=== PATIENT | female | born 1970 | race Caucasian/White ===

== ENCOUNTER 2017-07-28 01:48 | Emergency (ER) | payer OTHER ==
[~2017-07-28] VITALS: Ht 157.5 cm; Wt 56.7 kg
[~2017-07-28 01:48] MED LIST: ATIVAN1 M1 PO; FIBER CON625 MG PO; FOLIC ACID 1MG T1 MG PO; KEFLEX 500MG.500 MG PO; METHOTREXATE 22.5 MG PO; NATURE'S BLEND M3 MG PO; PLAQUENIL200 MG PO; PREDNISONE50 MG PO; PREMARIN 0.9MG0.9 MG PO
[2017-07-28] MEDS ORDERED: METHOCARBAMOL500 M1 PO (01:58)
[2017-07-28] MEDS ORDERED: DULOXETINE60 MG PO (01:58)
[2017-07-28] MEDS ORDERED: CYCLOBENZAPRINE10 M1 OR (01:59)
[2017-07-28] MEDS ORDERED: DICLOFENAC SODI PO (01:59)
--- NOTE | 2017-07-28 02:26 | Emergency Room Report ---
See Addendum History of Present Illness Time Seen by MD Macario Presenting Problem in Triage Pt arrived:Walked Presenting Problem:PT ADVISES SHE HAS A HX OF FIBROMYALGIA AND RA. 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 N Clinical Suspician of Infection? N Mental Status: 1 - Regular (Normal Baseline) Sepsis Risk:Low Sepsis Risk Have you (or family members/close friends) recently traveled outside the [place]? N If Yes, where/when: Have you had exposure to infectious disease within the past month? N TB? Other? Specify: Source patient, RN notes reviewed, family, old records Exam Limitations no limitations Comment acute excerbation of diffuse jt and mm pain with hx of ra and fibro- worse tonight despite meds Cardiac Chest Pain Chest pain indicative of cardiac No Timing/Duration this evening Severity moderate ALLERGIES Coded Allergies: No Known Allergies (08/24/16) Home Medications Active Scripts Lorazepam (Ativan) 1 MG PO TIDP PRN ANXIETY #30 TAB Prov: 05/14/15 Reported Medications MISCELLANEOUS (UNKNOWN MEDICATION) 1 TAB PO DAILY Calcium Polycarbophil (Fiber Con) 625 MG PO BID ESTROGENS, CONJUGATED (Premarin 0.9MG. Tablet) 0.9 MG PO DAILY FOLIC ACID (Folic Acid) 400 MCG PO DAILY Methocarbamol 500 MG PO DAILY #30 DULOXETINE HCL (Duloxetine) 60 MG PO DAILY #60 DICLOFENAC SODIUM/MISOPROSTOL (Diclofenac-Misoprost 50-200 Tb) 1 ECT PO DAILY #60 Cyclobenzaprine Hcl 10 MG OR DAILY #90 History Medical History General CAD? No Angina: No [place]: No Hypertension? No Hyperlipidemia? No CHF? No DVT? No PE? No COPD? No Asthma? No Anemia? No GERD? No Gastric ulcers? No GI Bleed? No Hernia? No Thyroid Problems? No Hypothyroidism? No CVA? No Seizures? No Diabetes? No Insulin Dependent: No Insulin Pump: No Home FSBS? No Renal Insuffiency? No End Stage Renal Disease? No UTI? Yes Stones? No BPH? No GB Disease: No Nephritic Syndrome? No Asplenia? No Hepatitis? No Sickle Cell Disease? No Arthritis? No Migraines? Yes Cataracts? No Glaucoma? No MRSA? No HIV? No TB? No Anxiety? No Depression? No Cancer? No More? 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 Respiratory denies cough, denies shortness of breath Cardiovascular see HPI, denies chest pain, denies palpitations, denies syncope, other Gastrointestinal denies abdominal pain, denies diarrhea, denies vomiting Genitourinary denies: dysuria, frequency, hesitancy, hematuria. Musculoskeletal see HPI, denies back pain, joint pain, joint swelling, denies neck pain Skin denies rash Psychiatric/Neurological denies headache, denies seizure Physical Exam Vital Signs Vital Signs Date Time Temp Pulse Resp B/P Pulse O2 O2 Flow FiO2 Ox Delivery Rate 07/28 0315 16 07/28 0220 16 07/28 0153 98.5 73 16 150/90 98 - WBC >12,000 or <4,000 or 10% bands? 2 or more SIRS Criteria Met? B/P:150/90 MAP:110 Creatinine >2.0? UA output<0.5ml/kg/hr for 2 hrs? Platelet count >100,000? Lactate >2.0mmol/1? INR >1.2 or PTT > than 60 sec? Evidence of Organ Dysfunction? Provider documented clinical suspician of infection? N Sepsis Criteria Count: 0 Sepsis Risk: Low Sepsis Risk General Appearance no apparent distress Eye Exam - bilateral eye PERRL, bilateral eye EOMI Ear, Nose, Throat normal ENT inspection Neck supple Respiratory Status No: respiratory distress. 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 No Results/Orders Laboratory Tests 07/28/17 0206: Sodium 142, Potassium 4.0, Chloride 105, Carbon Dioxide 29, BUN 13, Creatinine 1.0, Estimated Creat Clear 62, Estimated GFR (MDRD) 59, Glucose 108 H, Calcium 9.0, Total Bilirubin 0.2, AST 22, ALT 24, Alkaline Phosphatase 95, Creatine Kinase 66, CK-MB (CK-2) Rel Index 1.8, CK and CKMB Interp 1.2, Troponin I < 0.02 , Total Protein 6.9, Albumin 3.2 L, Globulin 3.7 H, Albumin/Globulin Ratio 0.9 L, WBC 5.2, RBC 3.77 L, Hgb 11.5 L, Hct 36.1 L, MCV 95.7, RDW 14.4, Plt Count 308, MPV 7.6, Gran % 48.6, Gran # 2.5, Lymphocytes % 39.2, Monocytes % 8.3 , Eosinophils % 3.3, Basophils % 0.5, Lymphocytes # 2.0, Monocytes # 0.4, Eosinophils # 0.2, Basophils # 0.0, PUBS MCHC 31.7 L, ESR 12, MCH 30.4 Current Medication Orders Sig/Annette Start time Last Medication Dose Route Stop Time Status Admin Morphine Sulfate 4 MG ONCE ONE 07/28 300 DC 07/28 IV 07/28 Ondansetron HCl 4 MG ONCE ONE 07/28 300 DC 07/28 IV 07/28 301 031 Morphine Sulfate 0 .STK-MED ONE 07/28 259 DC .ROUTE Ondansetron HCl 0 .STK-MED ONE 07/28 259 DC .ROUTE Ketorolac 0 .STK-MED ONE 07/28 211 DC Tromethamine .ROUTE Methylprednisolone 0 .STK-MED ONE 07/28 211 DC Sodium Succinate .ROUTE Sodium Chloride 1,000 ML .STK-MED ONE 07/28 211 DC IV Ketorolac 30 MG ONCE ONE 07/28 200 DC 07/28 Tromethamine IV 07/28 201 0220 Methylprednisolone 125 MG ONCE ONE 07/28 200 DC 07/28 Sodium Succinate IV 07/28 201 0220 Sodium Chloride 10 ML PRN PRN 07/28 200 AC IV 07/29 158 Sodium Chloride 1,000 ML .Q4H 07/28 200 AC 07/28 IV 07/28 559 0221 Sodium Chloride 10 ML PRN PRN 07/28 200 AC IV 07/29 200 Orders Procedure Date/time Status IV SALINE LOCK 07/28 159 Active SED RATE 07/28 159 Complete C-REACTIVE PROTEIN 07/28 159 Complete COMPLETE METABOLIC PANEL 07/28 159 Complete CBC WITH AUTO DIFF 07/28 159 Complete CARDIAC ENZYMES 07/28 159 Complete Departure Departure Time of Disposition 0315 Disposition DC Home or Self Care(routine) Clinical Impression Primary Impression: Rheumatoid arthritis flare Secondary Impressions: Fibromyalgia affecting multiple sites Condition STABLE Referrals Henry Weeks MD (Family) Patient Instructions DI for Arthralgia Additional Instructions use meds and see pcp for follow up Discharge Counseling Counseled pt/family regarding diagnosis, test results, medications/RX, follow up needs Prescriptions Current Visit Scripts Prednisone (Prednisone 20MG) 20 MG PO BID #10 TAB ED Critical Care Critical Care No at 0322
[2017-07-28 02:28] LABS: HEMOGLOBIN 11.5 g/dL (12.2-16.2); LYMPH % 39.2 % (10-50.0)
[2017-07-28 02:50] LABS: BUN 13 mg/dL (7-18)
[2017-07-28 02:56] LABS: GFR (ESTIMATED) 59 ML/MIN (59-)
[2017-07-28] MEDS ORDERED: PREDNISONE 20MG20 MG PO (03:18)
[2017-07-28] MEDS ORDERED: ULTRAM50 MG PO (07:15)
[2017-07-28 07:43] VITALS: BP 116/60
--- OUTSIDE RECORDS SUMMARY | 2017-08-03 11:57 | External Medical Summary Rpt | CCD ---
Demographics Preferred Language Yakut Marital Status Unknown Jewish Affiliation Unknown Race Unknown Ethnic Group Unknown Author Author , BARBARA JIMENEZ Address Unknown Phone Immunization No patient found.
--- OUTSIDE RECORDS SUMMARY | 2017-08-03 11:57 | External Medical Summary Rpt | CCD ---
Author Author [employer] Organization [employer] Address Unknown Phone Unavailable Purpose Continuity of Care Document - through 2016
--- OUTSIDE RECORDS SUMMARY | 2017-08-03 11:57 | External Medical Summary Rpt | CCD ---
Demographics Preferred Language Slovak Marital Status Unknown Tenriism Affiliation Unknown Race Unknown Ethnic Group Unknown Author Author , BARBARA JIMENEZ Address Unknown Phone Immunization No patient found.
--- OUTSIDE RECORDS SUMMARY | 2017-08-03 11:57 | External Medical Summary Rpt | CCD ---
Author Author , BARBARA Organization BARBARA Address Unknown Phone [email or web address] Purpose Continuity of Care Document - 07-28-2017 through 2016 Results Labs Lab Lab Date Result Refere Interp Status Commen Order Detail nces retati t Range on Erythrocyte sedimentation rate by ana (07-28-2017 02:06) Erythro = 12 0-20 complet cyte 017 mm/hr ed sedimen 02:06 tation rate by ana CBC w auto diff (07-28-2017 02:06) Red = 3.77 4.2-5.4 complet blood 017 M/mm3 ed cell 02:06 count Automat = 0.2 0.0-0.4 complet ed 017 K/mm3 ed blood 02:06 eosinop hil count Baso % = 0.5 % 0.1-2.0 complet 017 ed 02:06 Automat = 0.0 0-0.2 complet ed 017 K/MM3 ed blood 02:06 basophi l count (count/ vo Automat = 95.7 82.2-97 complet ed 017 fl .8 ed erythro 02:06 cyte mean corpusc ular v Automat = 31.7 31.8-35 complet ed 017 g/dl .4 ed erythro 02:06 cyte mean corpusc ular h Mean = 30.4 27-31.2 complet corpusc 017 pg ed ular 02:06 hemoglo bin (MCH) determ Lymphoc = 39.2 10-50.0 complet yte 017 % ed count, 02:06 blood, automat ed Absolut = 2.0 0.7-4.5 complet e 017 K/mm3 ed lymphoc 02:06 yte count Blood = 11.5 12.2-16 complet hemoglo 017 g/dL .2 ed bin 02:06 measure ment (mass/v olum Blood = 36.1 37.0-47 complet hematoc 017 % .0 ed rit 02:06 (volume fractio n) Granulo = 48.6 37.0-80 complet cyte 017 % .0 ed percent 02:06 age Blood = 2.5 1.8-7.8 complet granulo 017 K/mm3 ed cytes 02:06 automat ed count (numb Automat = 3.3 % 0.1-12. complet ed 017 0 ed blood 02:06 eosinop hils/10 0 leukocy t Blood = 5.2 4.8-10. complet leukocy 017 K/MM3 8 ed meghan 02:06 count (number /volume ) Automat = 14.4 11.5-17 complet ed 017 % .5 ed erythro 02:06 cyte distrib ution width Blood = 308 142-424 complet platele 017 K/mm3 ed t count 02:06 Automat = 7.6 7.4-10. complet ed 017 fl 4 ed blood 02:06 platele t mean volume dottie [facility] % = 8.3 % 1.7-9.3 complet 017 ed 02:06 Absolut = 0.4 0.1-1.0 complet e 017 K/mm3 ed monocyt 02:06 e count CRP (07-28-2017 02:06) CRP = 0.9 0.0-0.9 complet 017 MG/DL ed 02:06 Comprehensive metabolic panel (07-28-2017 02:06) Serum = 0.2 0.2-1.0 complet or 017 mg/dL ed plasma 02:06 total bilirub in measure m Serum = 95 46-116 complet or 017 U/L ed plasma 02:06 alkalin e phospha tase dottie Serum = 9.0 8.5-10. complet or 017 mg/dL 1 ed plasma 02:06 calcium measure ment (mas Serum = 13 7-18 complet or 017 mg/dL ed plasma 02:06 urea nitroge n measure men Serum = 105 98-107 complet or 017 mmoL/L ed plasma 02:06 chlorid e measure ment (mo Protein = 6.9 6.4-8.2 complet total 017 gm/dL ed ser/geraldine 02:06 s ALT = 24 12-78 complet (SGPT) 017 U/L ed ser/geraldine 02:06 s Serum = 22 15-37 complet or 017 U/L ed plasma 02:06 asparta te aminotr ansfera Serum = 142 136-145 complet sodium 017 mmoL/L ed measure 02:06 ment Serum = 4.0 3.5-5.1 complet potassi 017 mmoL/L ed um 02:06 measure ment Serum = 108 74-106 complet or 017 mg/dL ed plasma 02:06 glucose measure ment (mas Serum = 3.7 1.3-3.2 complet globuli 017 gm/dL ed n 02:06 measure ment (mass/v olume) Estimat = 59 59- complet ed 017 ML/MIN ed glomeru 02:06 lar filtrat ion rate (GF Comment: REFERENCE RANGE: >60 ML/MIN/1.73 SQUARE METERS Comment: If this patient is -[place], then multiply the Comment: result by 1.210. Estimat = 62 50-200 complet ion of 017 ML/MIN ed creatin 02:06 ine renal clearan ce Serum = 1.0 0.55-1. complet or 017 mg/dL 02 ed plasma 02:06 creatin ine measure ment ( Carbon = 29 21.0-32 complet dioxide 017 mmoL/L .0 ed 02:06 measure ment Serum = 3.2 3.4-5.0 complet or 017 gm/dL ed plasma 02:06 albumin measure ment (mas Serum = 0.9 1.1-1.8 complet or 017 ed plasma 02:06 albumin /globul in mass ra Cardiac enzymes (07-28-2017 02:06) Serum < 0.02 0.00-0. complet or 017 ng/mL 06 ed plasma 02:06 troponi n i.cardi ac measu Serum = 66 26-192 complet or 017 U/L ed plasma 02:06 creatin e kinase measure m Serum = 1.2 0.0-3.6 complet or 017 ng/mL ed plasma 02:06 creatin e kinase MB measu Serum = 1.8 0-4.0 complet or 017 U/L ed plasma 02:06 creatin e kinase MB (CK-M
--- OUTSIDE RECORDS SUMMARY | 2017-08-03 11:57 | External Medical Summary Rpt | CCD ---
Author Author , BARBARA Organization BARBARA Address Unknown Phone [email or web address] Purpose Continuity of Care Document - 07-28-2017 [...] blood 02:06 platele t mean volume dottie [place] % = 8.3 % 1.7-9.3 complet 017 [...] SQUARE METERS Comment: If this patient is -Lao, then multiply the Comment: result by 1.210. [...]
--- OUTSIDE RECORDS SUMMARY | 2017-08-03 11:57 | External Medical Summary Rpt ---
Author Author [employer], [employer] Organization [employer] Address Unknown Phone Unavailable Results CBC W Auto Differential panel in Blood Observa Value Referen Units Interpr Notes Date tion ce etation Range Basophils 0 - 0.2 K/MM3 Normal No Jul 28 informati 2016 2:06 [#/volume on in AM ] in source Blood by data Automated count Basophils 0.1 - 2.0 % Normal No Jul 28 / informati 2017 2:06 leukocyte on in AM s in source Blood by data Automated count Eosinophi 0.0 - 0.4 K/mm3 Normal No Jul 28 ls informati 2016 2:06 [#/volume on in AM ] in source Blood by data Automated count Eosinophi 0.1 - % Normal No Jul 28 ls/100 12.0 informati 2016 2:06 leukocyte on in AM s in source Blood by data Automated count Granulocy 1.8 - 7.8 K/mm3 Normal No Jul 28 meghan informati 2017 2:06 [#/volume on in AM ] in source Blood by data Automated count Granulocy 37.0 - % Normal No Jul 28 meghan/100 80.0 informati 2017 2:06 leukocyte on in AM s in source Blood by data Automated count Hematocri 37.0 - % Low No Jul 28 t [Volume 47.0 informati 2016 2:06 on in AM Fraction] source of Blood data Hemoglobi 12.2 - g/dL Low No Jul 28 n 16.2 informati 2016 2:06 [Mass/vol on in AM ume] in source Blood data Lymphocyt 0.7 - 4.5 K/mm3 Normal No Jul 28 es informati 2016 2:06 [#/volume on in AM ] in source Unspecifi data ed specimen by Automated count Lymphocyt 10 - 50.0 % Normal No Jul 28 es informati 2016 2:06 [#/volume on in AM ] in source Unspecifi data ed specimen by Automated count Erythrocy 27 - 31.2 pg Normal No Jul 28 te mean informati 2017 2:06 corpuscul on in AM ar source hemoglobi data n [Entitic mass] Erythrocy 31.8 - g/dl Low No Jul 28 te mean 35.4 informati 2016 2:06 corpuscul on in AM ar source hemoglobi data n concentra tion [Mass/vol ume] by Automated count Erythrocy 82.2 - fl Normal No Jul 7 te mean 97.8 informati 2016 2:06 corpuscul on in AM ar volume source [Entitic data volume] by Automated count Monocytes 0.1 - 1.0 K/mm3 Normal No Jul 7 informati 2016 2:06 [#/volume on in AM ] in source Blood by data Automated count Monocytes 1.7 - 9.3 % Normal No Jul 7 /100 informati 2017 2:06 leukocyte on in AM s in source Blood by data Automated count Platelet 7.4 - fl Normal No Jul 28 mean 10.4 informati 2016 2:06 volume on in AM [Entitic source volume] data in Blood by Automated count Platelets 142 - 424 K/mm3 Normal No Jul 7 informati 2016 2:06 [#/volume on in AM ] in source Blood data Erythrocy 4.2 - 5.4 M/mm3 Low No Jul 7 meghan informati 2017 2:06 [#/volume on in AM ] in source Amniotic data fluid Erythrocy 11.5 - % Normal No Jul 28 te 17.5 informati 2016 2:06 distribut on in AM ion width source [Entitic data volume] by Automated count Leukocyte 4.8 - K/MM3 Normal No Jul 7 s 10.8 informati 2016 2:06 [#/volume on in AM ] in source Blood data Erythrocyte sedimentation rate by Westergren method Observa Value Referen Units Interpr Notes Date tion ce etation Range Erythrocy 0 - 20 mm/hr Normal No Jul 28 te informati 2017 2:06 sedimenta on in AM tion rate source by data Meleergtania n method
== END 2017-07-28 07:44 | disposition home or self-care (01) ==
LOC: ER 01:48
PROVIDERS: Emergency Medicine
DX: M06.9 Rheumatoid arthritis, unspecified (principal); M79.7 Fibromyalgia
CPT/HCPCS: J2405